=== PATIENT | female | born 1965 | race Caucasian/White ===

== ENCOUNTER 2020-08-16 14:46 | Emergency (ER) | payer OTHER ==
[~2020-08-16 14:46] MED LIST: CALCIUM 500 +1 EAC3 PO; HYDROCODON-ACE1 EAC4 PO; KLONOPIN0.5 MG PO; LAMOTRIGINE200 MG PO; MELOXICAM15 MG PO; NORTRIPTYLINE H75 MG PO; PRAVASTATIN SOD40 MG PO; VENTOLIN HFA IN18 GM INH
[2020-08-16 16:06] LABS: BASOPHIL 0.7 % (0-2); EOSINOPHIL 2.2 % (0-5); HCT 45.5 % (37.0-47.0); HGB 15.6 g/dl (12.5-16.0); LYMPHOCYTE 32.4 % (15-48); MCH 32.8 pg (25.0-31.0); MCHC 34.3 g/dL (32.0-36.0); MCV 95.8 fL (78.0-100.0); MONOCYTE 4.3 % (0-12); MPV 10.7 fL (6.0-9.5); NEUTROPHIL 60.3 % (41-80); NRBC 0; PLT 227 K/uL (150-400); RBC 4.75 M/uL (4.20-5.40); RDW 11.9 % (11.5-14.0); WBC 6.8 K/uL (4.0-10.5)
[2020-08-16 16:21] LABS: BUN/CREAT RATIO (CALC) 14.9 RATIO; CREATININE 0.74 mg/dL (0.51-0.95); POTASSIUM 4.1 mmol/L (3.5-5.1)
[2020-08-16 16:44] LABS: CORONAVIRUS 2019 SARS-COV-2 NEGATIVE (NEGATIVE); INFLUENZA A NAA NEGATIVE (NEGATIVE)
== END 2020-08-16 17:51 | disposition home or self-care (01) ==
LOC: FER 14:46
PROVIDERS: Nurse Practitioner Family
DX: B34.9 Viral infection, unspecified (principal); I10 Essential (primary) hypertension; Z79.899 Other long term (current) drug therapy; Z20.828 Contact with and (suspected) exposure to other viral communicable diseases
CPT/HCPCS: 36415; 71045; 80048; 82728; 83880; 85025; U0002

== ENCOUNTER 2022-01-21 19:31 | Emergency (ER) | payer OTHER ==
[2022-01-21 19:52] LABS: BASOPHIL 0.2 % (0-2); EOSINOPHIL 1.3 % (0-5); HCT 43.4 % (37.0-47.0); HGB 15.4 g/dl (12.5-16.0); LYMPHOCYTE 6.9 % (15-48); MCH 33.3 pg (25.0-31.0); MCHC 35.5 g/dL (32.0-36.0); MCV 93.9 fL (78.0-100.0); MONOCYTE 2.7 % (0-12); MPV 10.8 fL (6.0-9.5); NEUTROPHIL 88.3 % (41-80); NRBC 0; PLT 185 K/uL (150-400); RBC 4.62 M/uL (4.20-5.40); RDW 11.6 % (11.5-14.0); WBC 14.4 K/uL (4.0-10.5)
[2022-01-21 20:02] LABS: INR 1.05 (0.9-1.2); PROTHROMBIN TIME 13.1 SECONDS (11.8-13.4); PTT 44.1 SECONDS (24.4-34.7)
[2022-01-21 20:17] LABS: ALBUMIN 3.9 g/dL (3.4-5.0); BILIRUBIN - TOTAL 0.9 mg/dL (0.2-1.0); BUN/CREAT RATIO (CALC) 12.9 RATIO; CREATININE 0.7 mg/dL (0.51-0.95); GLOBULIN (CALCULATION) 3.1 g/dL; MAGNESIUM 1.8 mg/dL (1.8-2.4); POTASSIUM 3.8 mmol/L (3.5-5.1)
[2022-01-21 20:49] LABS: LACTIC ACID 0.8 mmol/L (0.4-1.9)
[2022-01-21 21:00] LABS: BILIRUBIN NEGATIVE (NEGATIVE); BLOOD 1+ Ery/uL (NEGATIVE); CLARITY CLEAR (CLEAR); COLOR YELLOW (YELLOW); GLUCOSE (U) NORMAL (NORMAL); LEUKOCYTES NEGATIVE Leu/uL (NEGATIVE); NITRITE NEGATIVE (NEGATIVE); PROTEIN NEGATIVE (NEGATIVE); SPECIFIC GRAVITY 1.015 (1.001-1.030); UROBILINOGEN 0.2 mg/dL (0.2-1.0)
[2022-01-21 21:06] LABS: CORONAVIRUS 2019 SARS-COV-2 NEGATIVE (NEGATIVE); INFLUENZA A NAA NEGATIVE (NEGATIVE)
[2022-01-21 21:27] LABS: AMPHETAMINES NEGATIVE (NEGATIVE); BARBITURATES NEGATIVE (NEGATIVE); ECSTASY (MDMA) NEGATIVE (NEGATIVE); MARIJUANA (THC) NEGATIVE (NEGATIVE); METHADONE NEGATIVE (NEGATIVE); OPIATES NEGATIVE (NEGATIVE)
[2022-01-21 21:28] LABS: OXYCODONE NEGATIVE (NEGATIVE)
[2022-01-21 21:30] LABS: URINARY WBC RARE
[2022-01-21] MEDS ORDERED: AZITHROMYCIN250 MG PO ×2 (22:05→22:35)
[2022-01-21] MEDS ORDERED: PREDNISONE 20MG20 MG PO ×2 (22:05→22:35)
== END 2022-01-21 22:36 | disposition home or self-care (01) ==
LOC: FER 19:31
PROVIDERS: Internal Medicine
DX: J43.9 Emphysema, unspecified (principal); I10 Essential (primary) hypertension; F17.210 Nicotine dependence, cigarettes, uncomplicated; Z91.041 Radiographic dye allergy status; Z88.5 Allergy status to narcotic agent; Z79.899 Other long term (current) drug therapy; Z20.822 Contact with and (suspected) exposure to COVID-19; Z28.310 Unvaccinated for COVID-19
CPT/HCPCS: 36415; 71250; 80053; 80305; 81001; 83605; 83690; 83735; 83880; 84145; 84484; 85025; 85610; 85730; 87040; 94640; J2405; J2930; U0002